=== PATIENT | female | born 1990 | race Caucasian/White ===

== ENCOUNTER 2017-04-30 15:41 | Inpatient (IN) | payer OTHER ==
[~2017-04-30] VITALS: Ht 167.6 cm; Wt 100.9 kg
[~2017-04-30 15:41] MED LIST: PRED5POW3 PO; VALA1000 PO
[2017-04-30 16:03] VITALS: BP 122/67
[2017-04-30] MEDS ORDERED: D5%-LACTATED RINGERS 1,000 ML IV SCH (16:18)
[2017-04-30] MEDS ORDERED: OXYTOCIN 30U/ 0.9% NaCL 500ML 500 ML ONE (16:18)
[2017-04-30] MEDS ORDERED: OXYTOCIN 30U/ 0.9% NaCL 500ML 500 ML IV ONE (16:18)
[2017-04-30] MEDS ORDERED: LIDOCAINE 1%, 20ML ONE (16:19)
[2017-04-30] MEDS ORDERED: MISOPROSTOL 200 MCG TABLET ONE (16:19)
[2017-04-30] MEDS ORDERED: NEWBORN KIT ONE (16:20)
[2017-04-30] MEDS: LACTATED RINGERS 1,000 ML IV SCH ×3 (16:26→20:03)
[2017-04-30] MEDS ORDERED: CALCIUM CARBONATE 500 MG TAB.CHEW PO PRN (16:30)
[2017-04-30] MEDS ORDERED: ONDANSETRON 2MG/ML, 2ML IVPush PRN (16:30)
[2017-04-30] MEDS ORDERED: FENTANYL PF 100 MCG/2ML IVPush PRN (16:30)
[2017-04-30 16:44] LABS: HEMATOCRIT 39.8 % (34.6-47.8); HEMOGLOBIN 13.3 g/dL (11.7-16.4); WHITE BLOOD COUNT 14.2 x10^3/uL (3.4-10)
[2017-04-30] MEDS ORDERED: BETAMETHASONE 6 MG/ML, 5ML IM ONE (17:00)
[2017-04-30] MEDS ORDERED: FENTANYL/BUPIV./NS/PF 250 ML EPIDCONT ONE (17:25)
[2017-04-30] MEDS ORDERED: BUPIVACAINE/PF 0.25% ONE (17:25)
[2017-04-30] MEDS ORDERED: LIDOCAINE/PF 1.5%-EPI 1:200K, 30ML ONE (17:25)
[2017-04-30] MEDS ORDERED: PREN1TAB60 PO (17:43)
[2017-04-30] MEDS: OXYTOCIN 30U/ 0.9% NaCL 500ML 500 ML IV SCH (21:59)
[2017-04-30] MEDS ORDERED: MISOPROSTOL 200 MCG TABLET PO PRN (22:00)
[2017-04-30] MEDS ORDERED: DOCUSATE 100 MG CAPSULE PO PRN (22:00)
[2017-04-30] MEDS ORDERED: IBUPROFEN 600 MG TABLET PO PRN (22:00)
[2017-04-30] MEDS ORDERED: ACETAMINOPHEN 325 MG TABLET PO PRN (22:00)
[2017-04-30] MEDS ORDERED: OXYcodone/APAP 5/325MG TABLET PO PRN ×2 (22:00)
[2017-04-30] MEDS ORDERED: ONDANSETRON 2MG/ML, 2ML IV PRN (22:00)
[2017-04-30 23:45] VITALS: BP 102/60
[2017-05-01 04:10] VITALS: BP 91/55
[2017-05-01 06:14] LABS: HEMATOCRIT 38.8 % (34.6-47.8); HEMOGLOBIN 12.9 g/dL (11.7-16.4); WHITE BLOOD COUNT 16.6 x10^3/uL (3.4-10)
[2017-05-01 06:50] VITALS: BP 97/60
[2017-05-01] MEDS: OXYTOCIN 30U/ 0.9% NaCL 500ML 500 ML IV SCH ×2 (07:59→17:59)
[2017-05-01] MEDS ORDERED: PRENATAL VIT/IRON/FA 1 EACH TABLET PO SCH (09:00)
[2017-05-01 11:40] VITALS: BP 90/51
[2017-05-01 15:53] VITALS: BP 101/63
[2017-05-01] MEDS ORDERED: OXYC-302 PO (16:45)
[2017-05-01] MEDS ORDERED: IBUP-1222 PO (16:45)
[2017-05-01 20:15] VITALS: BP 104/61
== END 2017-05-01 23:20 | disposition home or self-care (01) | DRG 775 ==
LOC: LDOP 15:41 → LDIP 16:14 → 2NW 23:30
PROVIDERS: ADMIT Obstetrics & Gynecology; ATTEND Obstetrics & Gynecology
PROC: 10907ZC Drainage of Amniotic Fluid, Therapeutic from Products of Conception, Via Natural or Artificial Opening (ICD-10-PCS; principal; 2017-05-01)
PROC: 10E0XZZ Delivery of Products of Conception, External Approach (ICD-10-PCS; 2017-05-01)
PROC: 3E0S3CZ (ICD-10-PCS; 2017-05-01)
PROC: 00HU33Z Insertion of Infusion Device into Spinal Canal, Percutaneous Approach (ICD-10-PCS; 2017-05-01)
DX: O80 Encounter for full-term uncomplicated delivery (principal); Z37.0 Single live birth; Z3A.37 37 weeks gestation of pregnancy
CPT/HCPCS: 36415; 85025; 86850; 86900; J2590; J7120